=== PATIENT | female | born 1935 | race Caucasian/White ===

== ENCOUNTER 2018-04-10 13:25 | Inpatient (IN) ==
--- NOTE | 2018-04-10 13:42 | PDOC ---
Gen Adult / Medical Screen HPI - General Chief Complaint: Lower Extremity Problem/Injury Stated Complaint: WEAKNESS Date Seen by Provider: 04/10/18 Time Seen by Provider: 13:34 Source: POSITIVE: Patient, Other (Daughter) Exam Limitations: POSITIVE: Clinical condition Nurse's Notes Reviewed & Considered: Yes - Indicators Temperature Between 95 and 101 Degrees: Yes Respirations Between 12 and 20: Yes Blood Pressure Between 100-165 (sys) and 60-100 (barton): Yes Pulse Range Between 60-105 (100 for age > 60 years): Yes Severe Pain (Greater than 5/10 Reported): No Chest or Abdominal Pain: No Inability to Walk: No Pt Reports Active High Risk Cond. (TB/Hepatitis/HIV/Chemo): No Abnormal Mental Status: No - History of Present Illness Initial Comments: This is a well-developed, well-nourished, very pleasant, 82-year-old female, who is brought in by her daughter for confusion. Patient has had increasing episodes of confusion with being unsure of the date, her age, and some erratic behavior. She has stopped her car and without putting it in park attempted to exit the car, parked up on the sidewalk rather than in the parking spot, and attempted to leave a car being driven by another while still in motion. When asked what the date was she thought it was 190. She denies any headache, no sore throat, she is thirsty, denies any chest pain or shortness of breath, no cough, no nausea vomiting or diarrhea, no fever chills or sweats, no hematuria or dysuria, no abdominal pain, no rashes, no myalgias or arthralgias. Body Location Affected: REPORTS: Head Timing: REPORTS: Unknown Duration: Unknown Similar Symptoms Previously: Yes (symptoms similar to previous TIA) Recent Care Received: REPORTS: Denies Any Prior Injuries Related to Current Complaint?: No - Patient Home Medications Home Medications: Home Medications Cholecalciferol (Vitd3)/Vit K2 [D3 + K2 Dots 1,000 Units Tab] 2,000 mg PO DAILY 06/01/10 Multivitamin [Multivitamins] 1 ea PO DAILY tab 12/08/12 Benazepril HCl 1 unit PO QD #90 tab 11/08/16 Aspirin [Aspir 81] 81 mg PO DAILY 04/10/18 - Patient Allergies Allergies/Adverse Reactions: Allergies 3 Allergy/AdvReac Type Severity Reaction Status Date / Time No Known Allergies Allergy Verified 04/10/18 13:46 ROS - Limitations ROS Limitations: Mental Impairment (Patient alert and oriented only to person and place) Constitution: REPORTS: Denies Symptoms Cardiovascular: REPORTS: Denies Cardiac Symptoms Respiratory: REPORTS: Denies Resp Symptoms Neurological: REPORTS: Confusion Gastrointestinal: REPORTS: Denies GI Symptoms Endocrine: REPORTS: Denies Symptoms Musculoskeletal: REPORTS: Denies MS Symptoms Genitourinary: REPORTS: Denies Symptoms Eyes: REPORTS: Denies Symptoms ENT: REPORTS: Denies Symptoms Skin: REPORTS: Denies Skin Symptoms Lympathic: REPORTS: Denies Lympathic Symptoms Immunologic: POSITIVE: Denies Symptoms Psychiatric: POSITIVE: Denies Psych Symptoms Gen Adult/Medical Screen Exam - General Appearance General Appearance: POSITIVE: Alert, Cooperative, No Acute Distress, No Evidence of Trauma - HEENT HEENT: POSITIVE: Head Inspection Nml, Eyes Inspection Nml, Ears Inspection Nml, Nose Inspection Nml, Oral/Dental Inspect. Nml, Pharynx Inspect. Nml, PERRL, EOMI - Pupils Pupil Size: 5 mm: Bilateral - Neck Neck: POSITIVE: Normal Inspection, Thyroid Normal - Respiratory Respiratory: POSITIVE: No Respiratory Distress, Breath Sounds Normal, Chest Non- Tender - Cardiovascular Cardiovascular: POSITIVE: No Murmur, No Gallop, PMI Normal, Other (Runs of bigeminy and trigeminy present) Peripheral Pulses: Radial (R): 4+ - Abdomen Abdomen: Soft: (All Quadrants), Normal Bowel Sounds: (All Quadrants), Denies Tenderness: (All Quadrants), No Splenomegaly: (All Quadrants), No Hepatomegaly: (All Quadrants), No Guarding: (All Quadrants), No Rebound: (All Quadrants), No Palpable Pulse: (All Quadrants), No Palpabale Mass: (All Quadrants), No Distention: (All Quadrants), No Rigidity: (All Quadrants) - Back Back: POSITIVE: Normal Inspection - Neurological / Psychological Mental Status: POSITIVE: Mood Normal, Affect Normal Orientation: POSITIVE: Disoriented to Time - Skin Skin: POSITIVE: Normal Color, Warm, Dry, No Rash - Extremities Extremity: Non-Tender: (All Extremities), Normal ROM: (All Extremities), Normal Inspection: (All Extremities), Pelvis Stable: (All Extremities) Gen Adlt/Medical Scrn Progress - Results Reviewed by me Xrays/CTs/US Reviewed by me: Yes Discussed with Radiologist: Yes Lab Results Reviewed by Me: Yes CBC and BMP: 04/10/18 13:40 04/10/18 13:40 Lab Results:: Laboratory Results 3 04/10/18 04/10/18 04/10/18 13:40 13:40 13:40 WBC 12.07 H RBC 4.75 Hgb 13.9 Hct 39.2 MCV 82.5 MCH 29.3 MCHC 35.5 RDW Std Deviation 43.5 RDW Coeff of Lyn 14.7 H Plt Count 283 MPV 9.9 Immature Gran % (Auto) 0.4 Neut % (Auto) 77.5 Lymph % (Auto) 5.4 L Murray % (Auto) 16.5 H Eos % (Auto) 0.1 Baso % (Auto) 0.1 Immature Gran # (Auto) 0.05 Neut # (Auto) 9.36 Lymph # (Auto) 0.65 Murray # (Auto) 1.99 H Eos # (Auto) 0.01 Baso # (Auto) 0.01 WBC Morphology Comment Normal morphology Plt Morphology Comment Normal morphology RBC Morph Comment Normal morphology PT 9.5 L INR 0.90 Sodium 128 L Potassium 3.8 Chloride 94 L Carbon Dioxide 23 Anion Gap 11 BUN 29 H Creatinine 1.2 BUN/Creatinine Ratio 24.16 H Glucose 127 H Calculated Osmolality 273.0 Calcium 8.8 Magnesium 1.9 Total Bilirubin 0.9 AST 36 ALT 34 Alkaline Phosphatase 123 NT-Pro-B Natriuret Pep 2250 H Total Protein 5.9 L Albumin 3.2 L Globulin 2.7 Albumin/Globulin Ratio 1.10 L TSH Free T4 Serum Alcohol < 10 3 04/10/18 13:40 WBC RBC Hgb Hct MCV MCH MCHC RDW Std Deviation RDW Coeff of Lyn Plt Count MPV Immature Gran % (Auto) Neut % (Auto) Lymph % (Auto) Murray % (Auto) Eos % (Auto) Baso % (Auto) Immature Gran # (Auto) Neut # (Auto) Lymph # (Auto) Murray # (Auto) Eos # (Auto) Baso # (Auto) WBC Morphology Comment Plt Morphology Comment RBC Morph Comment PT INR Sodium Potassium Chloride Carbon Dioxide Anion Gap BUN Creatinine BUN/Creatinine Ratio Glucose Calculated Osmolality Calcium Magnesium Total Bilirubin AST ALT Alkaline Phosphatase NT-Pro-B Natriuret Pep Total Protein Albumin Globulin Albumin/Globulin Ratio TSH 4.61 H Free T4 1.44 Serum Alcohol EKG Interpretation:: POSITIVE: Abnormal EKG - Patient's Progress Pain Medication Addressed: POSITIVE: Not Applicable Re-Examine Time: 15:21 Status: POSITIVE: Improved MDM / ED Course: Patient was evaluated, an IV started, blood drawn and sent to the lab for studies, MRI of her brain was obtained. Findings: EKG shows a sinus arrhythmia with frequent PVCs. Chest x-ray shows no acute cardiopulmonary decompensation. MRI of her brain shows no acute intercranial abnormalities, evidence of chronic ischemia present. CBC shows white count of 12. Urinalysis is pending. BNP is elevated to 2000. CMP shows a sodium of 128. Assessment: #1 confusion. #2 hyponatremia. Plan: Admission and rehydration with sodium chloride IV. Follow-up on urinalysis. - Consult Consult (If Yes, Name of Consulting MD & Time Called): Yes (Dr. Ruiz, 1520hrs) Consulting MD will see pt:: [place] [facility] [place] Counseled: POSITIVE: Patient, Family, RE: Lab Results, RE: Radiology Results, RE : DX Patient Care Time - Estimated PCT Patient Care Time (In Minutes): 30 Vital Signs - Recent Vital Signs Vital Signs: Vital Signs (Last 8 hours) Temp Pulse Resp BP Pulse Ox 04/10/18 13:51 99.6 F 60 18 94/59 94 - VS Reviewed Vital Signs Reviewed: Yes Discharge Clinical Impression: Hyponatremia, Confusion, Elevated TSH Discharge Disposition: Admit to Observation Condition: Fair Date Decision to Admit to Inpatient: 04/10/18 Time Decision to Admit to Inpatient: 15:22
[2018-04-10] MEDS ORDERED: Sodium Chloride 0.9% 1,000 ML PRIMARY IV ONE (13:44)
--- NOTE | 2018-04-10 13:47 | EKG ---
[address] [address] Measurements Intervals [place] Rate: 94 P: 37 IN: 150 QRS: -15 QRSD: 82 T: 20 QT: 376 QTc: 428 Interpretive Statements SINUS RHYTHM WITH FREQUENT VENTRICULAR PREMATURE COMPLEXES POSSIBLE INFERIOR MYOCARDIAL INFARCTION [40+ ms Q WAVE AND/OR ST/T ABNORMALITY IN II/aVF], OF INDETERMINATE AGE No previous ECG available for comparison Electronically Signed On 04-13-18 08:51:44 MDT by Kyler Kerr MD [email or web address]
[2018-04-10 13:55] LABS: BASOPHILS # (AUTO) 0.01 10*3/UL; BASOPHILS % (AUTO) 0.1 % (0-1); EOSINOPHILS # (AUTO) 0.01 10*3/UL; EOSINOPHILS % (AUTO) 0.1 % (0-8); Hematocrit [HCT] 39.2 % (37.0-47.0); Hemoglobin [HGB] 13.9 g/dL (12.0-16.0); LYMPHOCYTES # (AUTO) 0.65 10*3/uL; MEAN CORPUSCULAR HEMOGLOBIN 29.3 PG (27-31); MEAN CORPUSCULAR HGB CONC 35.5 g/dL (33-37); MEAN CORPUSCULAR VOLUME 82.5 FL (81-99); MEAN PLATELET VOLUME 9.9 FL (7.4-12.2); MONOCYTES # (AUTO) 1.99 10*3/UL (0.3-0.8); MONOCYTES % (AUTO) 16.5 % (5-15); NEUTROPHILS # (AUTO) 9.36 10*3/UL; NEUTROPHILS % (AUTO) 77.5 % (50-80); RED BLOOD COUNT 4.75 10^6/uL (4.20-5.40)
[2018-04-10 14:03] LABS: BLOOD UREA NITROGEN 29 mg/dL (7-22); BUN/CREATININE RATIO 24.16 (6-20); SERUM ALBUMIN 3.2 g/dL (3.5-4.8)
[2018-04-10 14:06] LABS: PLATELET MORPHOLOGY COMMENT NORMAL MORPHOLOGY (NORM); RBC MORPHOLOGY COMMENT NORMAL MORPHOLOGY (NORM); WBC MORPHOLOGY COMMENT NORMAL MORPHOLOGY (NORM)
--- NOTE | 2018-04-10 14:26 | DI ---
MRI Brain WO Contrast,04/10/2018 1:44 PM: Clinical History: Confusion Previous Exam: None at this facility. Findings: Multiplanar MR images are obtained through the brain without contrast, and demonstrate normal, symmet keon ventricles and other CSF containing spaces. There is no mass, hemorrhage or midline shift. There is diffuse age-related volume loss. Major vascular flow voids are unremarkable. The cerebellopontine angles are grossly normal. Midline structures are unremarkable. There are areas of scattered FLAIR an d T2 signal throughout the subcortical and periventricular white matter. Impression: 1. Scattered nonspecific areas of increased FLAIR and T2 signal most consistent with small vessel isc hemic change. Differential diagnosis includes demyelinating disease, infection or inflammatory condit ion.
--- NOTE | 2018-04-10 14:59 | DI ---
XR CXR 2VW PA/LAT,04/10/2018 1:44 PM: Clinical History: Confusion Previous Exam: None at this facility. Findings: PA and lateral views of the chest are obtained, and demonstrate clear lungs. The cardiomediastinum an d bony thorax are unremarkable. Impression: Normal chest.
[2018-04-10] MEDS ORDERED: LIDOCAINE W/ SODIUM BICARB 0.5 ML SYR SUBD PRN (16:38)
[2018-04-10] MEDS ORDERED: ONDANSETRON 4 MG/2 ML VIAL IVP PRN (16:38)
[2018-04-10] MEDS ORDERED: DOCUSATE 100 MG CAPSULE PO PRN (16:38)
[2018-04-10 16:47] LABS: BILIRUBIN,URINE NEGATIVE (NEG); CLARITY,URINE CLOUDY (CLEAR); COLOR,URINE YELLOW (Y); GLUCOSE, URINE (UA) NEGATIVE (NEG); OCCULT BLOOD,URINE Trace-lysed (NEG); PROTEIN,URINE 30 mg/dl (NEG)
--- NOTE | 2018-04-10 16:50 | PDOC ---
HPI - History of Present Illness Date of Service: 04/10/18 Time of Service: 16:00 Chief Complaint: Weakness, confusion. History of Present Illness: This is a 82 years old female with medical history significant for history of seizure disorder before was on antiseizure medication was discontinued about 3 years ago, history of previous stroke in 2006, history of hypertension currently on no medications, who was brought to the hospital for evaluation because of confusion. Apparently the patient have been having episodes of confusion and having difficulty remembering her age and she had also some erratic behavior. That included stopping her car without putting it in park, attempting to exit the car while in motion. The patient herself is denying symptoms except that last week she said she's feeling weak and she is not eating well. She said she had some belching. She is denying abdominal pain, vomiting, shortness of breath. She denying fever or chills. Past Medical History Medical History: 1. Hypertension, not taking any medication now. 2. History of seizure disorder was on antiseizure medication and then they were discontinued. 3. History of stroke 2006 Surgical History: History of hernia surgery Pertinent Family History: History of multiple strokes her mother and father. History of seizures in her sister Past Social History: Does not smoke, does not drink no drugs. Lives in [place] in an apartment. She's been living there by herself for about a year. Prior to that apparently she was in [place] staying with her daughter and then she drove herself back and been living by herself. Tobacco Use: Never Smoker In the Past 12 Months, Have Used or Abuse Any of the Following Substance: None Alcohol Use: None Medication / Allergies Home Medications: Home Medications 3 Medication Instructions Recorded Confirmed Type Cholecalciferol (Vitd3)/Vit K2 [D3 2,000 mg PO DAILY 06/01/10 04/10/18 History + K2 Dots 1,000 Units Tab] Multivitamin [Multivitamins] 1 ea PO DAILY tab 12/08/12 04/10/18 History Benazepril HCl 1 unit PO QD #90 tab 11/08/16 04/10/18 Rx Aspirin [Aspir 81] 81 mg PO DAILY 04/10/18 04/10/18 History Allergies/Adverse Reactions: Allergies 3 Allergy/AdvReac Type Severity Reaction Status Date / Time No Known Allergies Allergy Verified 04/10/18 13:46 Review of Systems - Review of Systems All Systems: Reviewed & No Additional Complaints Except as Stated Exam - Vitals Vital Signs: Vital Signs Temperature 97.7 F Temperature Source Oral Pulse Rate [Pulse Oximeter] 86 Respiratory Rate 20 Blood Pressure [Left Arm] 132/57 Pulse Ox 95 Oxygen Delivery Method Room Air Height 5 ft Weight 135 lb - General General Appearance: No Acute Distress, Cooperative - Head Head Exam: Normal Inspection, Atraumatic - Eye Eye Exam: POSITIVE: Normal Appearance - ENT ENT Exam: POSITIVE: Normal Exam - Neck Neck Exam: Normal Inspection - Respiratory Respiratory Exam: POSITIVE: Clear to Auscultation - Bilaterally - Cardiovascular Cardiovascular Exam: POSITIVE: RRR - GI/Abdominal GI/Abdominal Exam: POSITIVE: Normal Bowel Sounds, Non Tender, Non Distended, Soft, No Organomegaly - Rectal Rectal Exam: POSITIVE: Deferred - External Exam: POSITIVE: Deferred Exam: POSITIVE: Deferred - Extremities Extremities Exam: POSITIVE: Normal Inspection - Back Back Exam: POSITIVE: Normal Inspection - Neurological Neurological Exam: POSITIVE: Alert, CN II-XII Intact, No Facial Droop, Speech Intact / Clear, Moves All Extremities Equally Additional Neurological Exam Details: She did not know the date but she knew the month and the year. She knew her date of . Apparently she had problems remembering the year earlier. Results - Labs CBC and BMP: 04/10/18 13:40 04/10/18 13:40 - EKG Data -: EKG Interpreted by Me (shows sinus rhythm with frequent premature ventricular beat. Poor R-wave progression in the anterior leads) - Imaging Status: Report Reviewed by Me (Chest X ray Normal MRI Brain Scattered nonspecific areas of increased FLAIR and T2 signal most consistent with small vessel ischemic change.) Assessment and Plan - Patient Problems (1) Confusion Current Visit: Yes Status: Acute Comment: According to daughter she did notice some changes in her memory the last few months. So she may have a underlying dementia. She had other abnormalities in the lab test that included mild to moderate hyponatremia, slightly elevated white count. I did tell the daughter that we'll give her some fluids will check the UA and culture. Hold antibiotics for now if there is anything in the urine then will put her antibiotics. We'll see her response to fluid although I suspect that this is a chronic condition. We'll ask PT to do a MOCA/CPT eval tomorrow. Code(s): R41.0 - Disorientation, unspecified (2) Hyponatremia Current Visit: Yes Status: Acute Comment: Unclear reason, will give a trial of fluids and repeat her labs in the morning. Code(s): E87.1 - Hypo-osmolality and hyponatremia (3) Elevated TSH Current Visit: Yes Status: Acute Comment: There is minimal elevation in the TSH, T4 is normal. This may be subclinical hypothyroidism or euthyroid syndrome. Need follow-up as an outpatient. Code(s): R94.6 - Abnormal results of thyroid function studies (4) Hypertension Current Visit: Yes Status: Acute Comment: There is a history of hypertension in the notes however the patient herself said she's not taking any blood pressure medications. She said she takes dark chocolate for blood pressure. It's not clear who stopped the medication. Sounded like the patient herself decided to stop the medication on her own. Code(s): I10 - Essential (primary) hypertension (5) Elevated brain natriuretic peptide (BNP) level Current Visit: Yes Status: Acute Comment: unclear reason she is denying shortness of breath and no chest pain. She may need an ECHO as an outpatient. we dont have ECHO services in the hospital. Code(s): R79.89 - Other specified abnormal findings of blood chemistry
[2018-04-10 16:53] LABS: URINE SAMPLE TYPE CLEAN CATCH URINE; URINE SPECIFIC GRAVITY - MAN 1.006
[2018-04-10 16:54] LABS: BACTERIA,URINE MANY; RENAL EPITHELIAL CELLS,URINE RARE; SQUAMOUS EPITHELIAL CELL,UR RARE; WBC,URINE 40-60
[2018-04-10 16:57] LABS: AMPHETAMINE SCREEN NEGATIVE (NEG); CANNABINOID SCREEN,URINE NEGATIVE (NEG); COCAINE SCREEN NEGATIVE (NEG); METHADONE URINE SCREEN NEGATIVE (NEG); METHAMPHETAMINES SCREEN,URINE NEGATIVE (NEG); OPIATE SCREEN,URINE NEGATIVE (NEG)
[2018-04-10] MEDS: Sodium Chloride 0.9% 1,000 ML PRIMARY IV SCH (17:40)
[2018-04-10] MEDS: cefTRIAXone Inj 1 GM in Sodium Chloride 0.9% 100 ML IV SCH (17:40)
[2018-04-10] MEDS: ACETAMINOPHEN 325 MG TABLET PO PRN (23:32)
[2018-04-11 04:42] LABS: BASOPHILS # (AUTO) 0.01 10*3/UL; BASOPHILS % (AUTO) 0.1 % (0-1); EOSINOPHILS # (AUTO) 0.01 10*3/UL; EOSINOPHILS % (AUTO) 0.1 % (0-8); Hematocrit [HCT] 33.6 % (37.0-47.0); Hemoglobin [HGB] 11.8 g/dL (12.0-16.0); LYMPHOCYTES # (AUTO) 0.67 10*3/uL; MEAN CORPUSCULAR HEMOGLOBIN 29.2 PG (27-31); MEAN CORPUSCULAR HGB CONC 35.1 g/dL (33-37); MEAN CORPUSCULAR VOLUME 83.2 FL (81-99); MONOCYTES # (AUTO) 1.13 10*3/UL (0.3-0.8); MONOCYTES % (AUTO) 13.8 % (5-15); NEUTROPHILS # (AUTO) 6.31 10*3/UL; NEUTROPHILS % (AUTO) 77.2 % (50-80); RED BLOOD COUNT 4.04 10^6/uL (4.20-5.40)
[2018-04-11 04:49] LABS: BLOOD UREA NITROGEN 22 mg/dL (7-22)
[2018-04-11 04:52] LABS: PLATELET MORPHOLOGY COMMENT NORMAL MORPHOLOGY (NORM); RBC MORPHOLOGY COMMENT NORMAL MORPHOLOGY (NORM); WBC MORPHOLOGY COMMENT NORMAL MORPHOLOGY (NORM)
[2018-04-11] MEDS: Sodium Chloride 0.9% 1,000 ML PRIMARY IV SCH (06:40)
[2018-04-11] MEDS: Potassium Chloride Tab 10 MEQ TAB PO SCH ×2 (08:43→17:41)
--- NOTE | 2018-04-11 08:43 | PDOC(PROG) ---
Date and Time of Service: 04/11/2018 8:44 AM Interval History: Subjective Patient feels a lot better she said. She Feels stronger. Not as weak as yesterday. Belching seemed to be improved. Objective : Data - Labs CBC and BMP: 04/11/18 04:05 04/11/18 04:05 Objective : Exam - General General Appearance: No Acute Distress, Cooperative - Head Head Exam: Normal Inspection - Eye Eye Exam: Normal Appearance - ENT ENT Exam: Normal Exam - Neck Neck Exam: Normal Inspection - Respiratory Respiratory Exam: Clear to Auscultation - Bilaterally - Cardiovascular Cardiovascular Exam: RRR - GI/Abdominal GI/Abdominal Exam: Normal Bowel Sounds, Non Tender, Non Distended, Soft, No Organomegaly - Rectal Rectal Exam: Deferred - External Exam: Deferred Exam: Deferred - Extremities Extremities Exam: Normal Inspection - Back Back Exam: Normal Inspection - Neurological Neurological Exam: Alert, Oriented x 3, CN II-XII Intact, No Facial Droop, Speech Intact / Clear, Moves All Extremities Equally - Psychiatric Psychiatric Exam: Normal Affect - Integumentary Integumentary Exam: Normal Color Assessment and Plan - Patient Problems (1) Confusion Current Visit: Yes Status: Acute Comment: She seems better than yesterday. I did talk to the daughters and the they still mentioned a few other instances in which she got lost driving and instances of forgetfulness. It still possible that she has underlying dementia in addition to presence of a urinary tract infection. She'll have a occupational and physical therapy assessment today they will also do the MOCA today. The daughters are concerned about her living by herself. I did tell him that we'll see the assessment of PT and and see their recommendation. Code(s): R41.0 - Disorientation, unspecified (2) Hyponatremia Current Visit: Yes Status: Acute Comment: Continue IV fluid. Code(s): E87.1 - Hypo-osmolality and hyponatremia (3) Elevated TSH Current Visit: Yes Status: Acute Comment: This need to be repeated as an outpatient Code(s): R94.6 - Abnormal results of thyroid function studies (4) Hypertension Current Visit: Yes Status: Acute Comment: Blood pressure seem to be acceptable so far. Code(s): I10 - Essential (primary) hypertension (5) Elevated brain natriuretic peptide (BNP) level Current Visit: Yes Status: Acute Comment: We'll repeat it tomorrow. She is denying shortness of breath. We are cautious with the amount of fluid we giving her. Code(s): R79.89 - Other specified abnormal findings of blood chemistry
--- NOTE | 2018-04-11 12:12 | OT.PROG ---
Progress Note Progress Note: S: pt stated she was doing good. She reports living alone and does not want to leave her house. She enjoys knitting for some extra money. pt and therapy aid did report that when attempting to get off of the toilet she fell backwards into the shower. She reported that she was fine and only a small bruise on her elbow. O: pt was seen in her room in the a.m. She was transferred down to therapy with no use of assistive device. She completed x2 cognitive test this morning. The MOCA and Cognitive Performance Test. MOCA results: executive: 11/17 namin/3 attention: 2 subtask 2# 1/1 subtask 3# 11/15 Language: 11/15 abstraction: 09/16 delayed recall: 10/20 orientation: 02/18 Total: 23 which places her in the mild cognitive impairment category. CPT and results: [employer]: 4.5/ Shop: 01/18 wash: 01/17 toast: 01/17 phone: 12/19 total: 23.5/28 & 4.6/5.6 which places her in the personalizing ACL level. A: Per results of tests, therapy may recommend living alone with daily monitoring depending on the novelty of the situation, physical ability and the context of environment and social demands. She may need assistance with new medications but if familiar may complete INd. Supervision of new surroundings or objects as well as financial affairs may be beneficial. It is believed that pt is aware of her safety and surrounding most of the time. P: continue to see pt per POC and continue to strengthen.
[2018-04-11] MEDS: ACETAMINOPHEN 325 MG TABLET PO PRN (12:54)
[2018-04-11] MEDS: CALCIUM CARBONATE 500 MG (TUMS) CHEWABLE TABLET PO PRN ×2 (13:06→17:54)
[2018-04-11] MEDS: cefTRIAXone Inj 1 GM in Sodium Chloride 0.9% 100 ML IV SCH (17:41)
[2018-04-12 04:52] LABS: BLOOD UREA NITROGEN 13 mg/dL (7-22); BUN/CREATININE RATIO 16.25 (6-20)
[2018-04-12 06:48] VITALS: O2SAT 93
[2018-04-12] MEDS: Potassium Chloride Tab 10 MEQ TAB PO SCH (07:09)
[2018-04-12] MEDS: CALCIUM CARBONATE 500 MG (TUMS) CHEWABLE TABLET PO PRN (08:25)
--- NOTE | 2018-04-12 09:01 | DCSUMMARY ---
Hospitalization Summary Admit Date: 04/10/2018 Discharge Date: 04/12/18 Hospital Course: Discharge instruction 1. UTI 2. Hyponatremia improved 3. History of hypertension 4. History of seizure in the past not on any medication now 5. Mild cognitive impairment 6. Elevated BNP 7. Abnormal TSH need follow-up subclinical hypothyroidism versus sick euthyroid syndrome 8. History of stroke 9. Scattered nonspecific areas of increased FLAIR and T2 signal most consistent with small vessel ischemic change. Hospital course This is an 82 years old the female medical history significant for history of seizure disorder before was on antiseizure medication and was discontinued about 3 years ago, history of previous stroke in 2006, history of hypertension currently on no medication who was brought to the hospital for evaluation because of confusion. The patient have been having episode of confusion, having difficulty remembering her age and she has some erratic behavior. That included stopping her car without putting it in park, attempting to exit the car while in motion. The patient herself is denying symptoms except that she's been feeling weak and she is not eating well. She had some belching she denied abdominal pain. When she came in she had slightly elevated white count and some hyponatremia. She was admitted to the hospital, was put on IV fluid. A UA was also abnormal and she was started on antibiotics. The growth showed Proteus. MRI BRAIN showed Scattered nonspecific areas of increased FLAIR and T2 signal most consistent with small vessel ischemic change. The family did mention symptoms suggestive of cognitive impairment she had the MOCA test and that showed her to fall into category of mild cognitive impairment. The suggestion was the daily supervision. Since she live alone the daughters convinced her about going with one of them into [place] and somebody will be present with her. I did tell the family that that she had an abnormal BNP and need echocardiogram at one point. The patient on the day of discharge for first time mentioned having an episode before she came in of black stool. However that happened only once. Did tell the family to follow up on that with her primary about that. her blood pressure remained acceptable and did not need to be on medication. Laboratory Results 04/10/18 04/12/18 04/12/18 Range/Units 16:10 04:10 04:10 Sodium 134 L (135-145) meq/L Potassium 3.7 L (3.8-5.2) meq/L Chloride 105 (98-112) meq/L Carbon Dioxide 21 L (23-33) meq/L Anion Gap 8 (5-20) BUN 13 (7-22) mg/dL Creatinine 0.8 (0.50-1.20) mg/dL BUN/Creatinine Ratio 16.25 (6-20) Glucose 98 (78-110) mg/dL Calculated Osmolality 277.0 (267-292) mOsm/kg Calcium 8.3 L (8.7-10.7) mg/dL NT-Pro-B Natriuret Pep 2990 H (0-450) PG/ML Ur Collection Type Clean catch urine Urine Color Yellow (Y) Urine Clarity Cloudy A (CLEAR) Urine pH 6.0 (5.0-8.5) Ur Specific [place] 1.006 (1.005-1.030) U Specif Grav (Refrac) 1.006 Urine Protein 30 A (NEG) mg/dl Urine Glucose (UA) Negative (NEG) mg/dL Urine Ketones Negative (NEG) Urine Occult Blood Trace-lysed H (NEG) Urine Nitrate Negative (NEG) Urine Bilirubin Negative (NEG) Urine Urobilinogen 1.0 (0.2) EU/dL Ur Leukocyte Esterase Large (NEG) Urine RBC None (NONE) /hpf Urine WBC 40-60 H (NONE) Ur Squamous Epith Cells Rare (NONE) Ur Renal Epithelial Cell Rare (NONE) Urine Crystals None Urine Bacteria Many H (NONE) Urine Casts None (NONE) Urine Mucus None (NONE) Urine Trichomonas None (NONE) Urine Yeast None (NONE) Ur Culture Indicated? Culture set Urine Opiates Screen Negative (NEG) Ur Buprenorphine Negative (NEG) Ur Oxycodone Screen Negative (NEG) Urine Methadone Screen Negative (NEG) Ur Propoxyphene Screen Negative (NEG) Barbiturate Screen Negative (NEG) U Tricyclic Antidepress Negative (NEG) Phencyclidine Screen Negative (NEG) Amphetamines Screen Negative (NEG) U Methamphetamines Scrn Negative (NEG) Benzodiazepines Screen Negative (NEG) Cocaine Screen Negative (NEG) U Marijuana (THC) Screen Negative (NEG) Discharge instruction Diet regular activity as tolerated Medications Follow-up with primary 1-2 weeks Condition at discharge stable for discharge Exam - Vitals Vital Signs: Vital Signs Temperature 97.1 F Temperature Source Temporal Artery Scan Pulse Rate [Pulse Oximeter] 68 Respiratory Rate 16 Blood Pressure [Left Arm] 138/64 Pulse Ox 93 Oxygen Delivery Method Room Air Height 5 ft Weight 137 lb - General General Appearance: No Acute Distress, Cooperative - Head Head Exam: Normal Inspection - Eye Eye Exam: POSITIVE: Normal Appearance - ENT ENT Exam: POSITIVE: Normal Exam - Neck Neck Exam: Normal Inspection - Respiratory Respiratory Exam: POSITIVE: Clear to Auscultation - Bilaterally - Cardiovascular Cardiovascular Exam: POSITIVE: RRR - GI/Abdominal GI/Abdominal Exam: POSITIVE: Normal Bowel Sounds, Non Tender, Non Distended, Soft, No Organomegaly - Rectal Rectal Exam: POSITIVE: Deferred - External Exam: POSITIVE: Deferred Exam: POSITIVE: Deferred - Extremities Extremities Exam: POSITIVE: Normal Inspection - Back Back Exam: POSITIVE: Normal Inspection - Neurological Neurological Exam: POSITIVE: Alert, Oriented x 3, CN II-XII Intact, Speech Intact / Clear, Moves All Extremities Equally - Psychiatric Psychiatric Exam: POSITIVE: Normal Affect Patient Problems - Patient Problem List (1) Confusion Status: Acute Code(s): R41.0 - Disorientation, unspecified Category: Medical (2) Hyponatremia Status: Acute Code(s): E87.1 - Hypo-osmolality and hyponatremia Category: Medical (3) Elevated TSH Status: Acute Code(s): R94.6 - Abnormal results of thyroid function studies Category: Medical (4) Hypertension Status: Acute Code(s): I10 - Essential (primary) hypertension Category: Medical (5) Elevated brain natriuretic peptide (BNP) level Status: Acute Code(s): R79.89 - Other specified abnormal findings of blood chemistry Category: Medical
[2018-04-12 13:59] VITALS: BP 130/72; RESP 20; TEMP 97.3
--- NOTE | 2018-04-13 15:02 | PT PM DAY ---
PM - Physical Therapy S: The patient states that she will be moving with her daughter to [place] for 24-hour care. O: The patient was seen in her room right after lunch today. The patient was able to transfer from supine to sit and from sit to stand independently; in fact, we had to slow her down. The patient ambulated with stand by assist and was very independent in her ambulation and was able to demonstrate ascending and descending 6 stairs. A: The patient seems to be feeling much better since her stay in the hospital. The therapist believes most of her goals and objectives have been accomplished for her inpatient care and she will be released to the cognizance of her daughter. P: Continue seeing patient BID during the week and one time per day over the weekend until discharge. TEOFILO
--- NOTE | 2018-04-15 10:41 | OTI REPORT ---
Thank you for the referral of Qi Marvin. She was seen on 04/10/18 for an occupational therapy inpatient evaluation secondary to increased confusion. SUBJECTIVE: The patient is an 82-year-old female who is being seen secondary to having increased confusion. She had decreased ability to complete her ADLs at home. Prior to admission the patient was living on her own in [place]. Her daughter does live in [place]; however, she does not check on her mother daily. Prior to admission the patient was independent with all of her ADLs. PAST MEDICAL HISTORY: Past medical history can be found in the patient's medical record. OBJECTIVE FINDINGS: General observations: The patient was alert and oriented to her name. She did not know the date or where she was at today. Bed mobility: The patient was able to come from supine to sit with contact guard assist. Range of motion: The patient had within functional limits for active range of motion. Strength: The patient's right upper extremity was slightly weaker than the left. Right shoulder had 3/5 for shoulder flexion vs. 4/5 on the left side. Activities of daily living: The patient was able to don and doff her socks independently while in a seated position. Balance: We completed some dynamic standing activities and the patient definitely has some balance issues and needed min to mod assist to control her balance. Cognition: The patient did demonstrate confusion today as she was talking about a daughter that does not exist per the patient's daughter. She was calling another lady a name and calling her her daughter. The patient was also confused as to where she was today. The therapist discussed this with Dr. Ruiz. He did say she has a slight UTI going on, but is a little concerned about dementia setting in. ASSESSMENT: At this time the patient would benefit from skilled occupational therapy to address completing the CPT as well as the MoCA assessments tomorrow once she is a little bit more coherent and has had some antibiotics for her UTI to see if she is more cognizant tomorrow. The patient does demonstrate some balance difficulties and difficulties with dynamic functional standing. She requires min to mod assist to keep her balance. Short-Term Goals: To be met by discharge from inpatient: Patient will complete CPT and MoCA assessments and results will be given. Patient will be able to dress self including set up independently. Patient will be able to complete 5 minutes of standing at sink independently. Patient will be able to complete all toilet and shower transfers independently. Long-Term Goals: To be met following discharge from inpatient: Patient's goal is to return home, demonstrating safety and independence with all activities of daily living. TREATMENT PLAN: Patient will be seen B.I.D during the week and one time per day over the weekend as an inpatient to address the above goals and objectives. INITIAL TREATMENT: Treatment today consisted of the initial evaluation followed by the patient completing bed mobility, dressing lower extremities, and dynamic standing activities while reaching from floor to higher levels with mod assist. The patient was able to stand at sink with min assist for balance. The patient completed some turning activities in room to grasp items out of closet with mod assist for balance. TEOFILO
== END 2018-04-12 14:14 | disposition home or self-care (01) | DRG 641 ==
LOC: ER 13:25 → MED/SURG 15:40
PROVIDERS: ADMIT Internal Medicine; ATTEND Internal Medicine